=== PATIENT | male | born 1975 | race Caucasian/White ===

== ENCOUNTER 2020-07-27 09:46 | Outpatient (REF) | payer OTHER, SELFPAY | END 2020-07-27 09:47 | disposition home or self-care (01) | LOC: HO.LAB 09:46 | PROVIDERS: Visit Provider Internal Medicine | DX: Z20.822 Contact with and (suspected) exposure to COVID-19 (principal) | CPT/HCPCS: 36415; C9803; U0003; U0005 ==

== ENCOUNTER 2021-05-12 12:08 | Outpatient (REF) | payer OTHER, SELFPAY ==
[2021-05-12 12:40] LABS: COVID-19 Test Negative (Negative)
== END 2021-05-12 12:09 | disposition home or self-care (01) ==
LOC: HO.LAB 12:08
PROVIDERS: Visit Provider Internal Medicine
DX: Z20.822 Contact with and (suspected) exposure to COVID-19 (principal)
CPT/HCPCS: 36415; 87635; C9803

== ENCOUNTER 2021-06-06 13:00 | Outpatient (REF) | payer OTHER, SELFPAY | END 2021-06-06 13:01 | disposition home or self-care (01) | LOC: HO.LAB 13:00 | PROVIDERS: Visit Provider Internal Medicine | DX: Z13.89 Encounter for screening for other disorder (principal) | CPT/HCPCS: C9803; U0003 ==

== ENCOUNTER 2021-06-09 | Outpatient (REF) | payer OTHER, SELFPAY ==
[2021-06-09 11:43] LABS: COVID-19 Test Negative (Negative); IDNOW Serial# 16C4AD1C
== END 2021-06-09 00:01 | disposition home or self-care (01) ==
LOC: HO.LAB
PROVIDERS: Visit Provider Internal Medicine
DX: Z20.822 Contact with and (suspected) exposure to COVID-19 (principal)
CPT/HCPCS: 87635; C9803